=== PATIENT | female | born 1985 | race Caucasian/White ===

== ENCOUNTER 2020-08-17 15:11 | Outpatient (CLI) | payer OTHER, SELFPAY ==
--- NOTE | 2020-08-17 15:25 | CT_ITS ---
WS: [id number] CT scan of the temporal bones. Additional two-dimensional coronal and sagittal reconstruction was per formed. 08/17/2020 Clinical Data: SENSORINEURAL HEARING LOSS OF BOTH EARS, HX PERFORATION TYMP Comparison: None. DLP: 747.[address] scans at [facility] use at least one of these dose optimization techniques: automat ed exposure control; mA and/or kV adjustment per patient size (includes targeted exams where dose is matched to clinical indication); or iterative reconstruction. Findings: The external auditory canals are normal. The malleolus, incus and stapes appear to be normal. The se micircular canals show no erosions. The internal auditory canals are normal. The attic shows no erosi on or evidence of a cholesteatoma. The adjacent mastoid air cells appear to be normal. The carotid ca nals are not eroded. CT/CT temporal bone wo con* [id number] Impression: Negative CT scan of the temporal bones.
== END 2020-08-17 15:12 | disposition home or self-care (01) ==
LOC: RADWPI 15:17
PROVIDERS: PCP Family Medicine; Visit Provider Otolaryngology Otology & Neurotology
DX: Z86.69 Personal history of other diseases of the nervous system and sense organs; H90.A32 Mixed conductive and sensorineural hearing loss, unilateral, left ear with restricted hearing on the contralateral side; H90.6 Mixed conductive and sensorineural hearing loss, bilateral
CPT/HCPCS: 70480

== ENCOUNTER 2021-12-21 07:59 | Emergency (ER) | payer OTHER, SELFPAY ==
--- NOTE | 2021-12-21 08:03 | ECG_ITS ---
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 Measurements Intervals [place] Rate: 99 P: 31 WV: 132 QRS: 23 QRSD: 96 T: 0 QT: 315 QTc: 406 Interpretive Statements SINUS RHYTHM NONSPECIFIC T-WAVE ABNORMALITY No previous ECG available for comparison Electronically Signed On 12-21-2021 23:22:23 CDT by Shanelle Madrid M.D. [id number]
--- NOTE | 2021-12-21 08:03 | XR_ITS ---
WS: [id number] Exam: XR chest 1V portable [id number] Date/Time of Exam: 12/21/2021 8:04 AM Reason For Exam: chest pain Findings: The lungs are clear and fully expanded. Costophrenic angles are sharp. No infiltrates. Bronchovascula r relief appears normal. Cardiac silhouette is unremarkable. Bony elements are intact. XR/XR chest 1V portable [id number] IMPRESSION: Unremarkable chest radiograph.
--- NOTE | 2021-12-21 08:26 | ED_ITS ---
Documented by User: BETINA Spangler 12/21/21 10:55 HPI - Chest Pain General: Chief Complaint: Chest Pain Stated Complaint: chest pain/light headed/jaw & back pain Time Seen by Provider: 12/21/21 08:01 Source: patient and family Mode of arrival: ambulatory Limitations: no limitations History of Present Illness: Patient is a nice 36-year-old female who presents to ED today along with her mother and for concerns of an episode of chest pain that occurred this morning when she woke up. Patient states she did not sleep very well last night secondary to bloating/cramping sensations to her upper abdomen and states she was burping a lot. She states this morning she began feeling like she had acid reflux but states the pain worsened and moved up into her chest and radiated into her back and up into her jaw which made her concerned. Patient states her pain was uncharacteristic for her and her previous acid reflux symptoms. Patient tells me she had a Holter monitor a few weeks ago due to palpitations and abnormal heart rhythms-they are unaware of these results. Patient states she currently is not having palpitations or feeling like her heart is racing. She currently does not have chest pain but does feel like her jaws hurting. Patient denies shortness of breath or difficulty breathing. No cough/URI symptoms. No fevers. Family wonders if this could be her gallbladder as she was told she had sludge previously. Patient does feel nauseous. She has not had any episodes of emesis. Bowel movements have been normal. She states she has otherwise healthy and takes no medications. She does states she had an elevated cholesterol reading from an isolated screening test but states she believes that she has had this checked through PCP and they keep telling her everything is normal but does not know specific results. She states she does have family history of heart disease with individuals being diagnosed in their 50s/60s. MD complaint: chest pain Onset (ago): hour(s) Prior episodes: Yes Onset: during rest and awoke with symptoms Pain location: substernal and epigastric Pain radiation: jaw/teeth Relieving factors: nothing Exacerbating factors: nothing Associated symptoms: Reports abdominal pain, nausea and palpitations (has had previously-none currently); Deny dyspnea, fever(s), syncope or vomiting Treatment prior to arrival: none Risk Factors: Coronary artery disease risk factors: hyperlipidemia (questionable-states she had elevated reading previously but PCP stating normal labs ) Thoracic aortic dissection risk factors: none Related Data: On Oral Contraceptives: No Review of Systems Const: Reports: fatigue; Denies: fever(s), chills or body aches Eyes: Denies: change in vision or blurry vision Card: Reports: chest pain, palpitations (has had previously-none currently) an d lightheadedness; Denies: edema, swelling of feet/ankles, syncope, pre-syncope, dyspnea on exertio n, orthopnea, leg pain with exertion or acrocyanosis Resp: Denies: dyspnea, wheezing, pain on inspiration, hemoptysis or chest congestion GI: Reports: abdominal pain, nausea, heartburn and GI cramping; Denies: vomiting or diarrhea Musc: Reports: back pain (low back pain this AM-none currently); Denies: neck pain, extremity pain or joint pain Skin/Breast: Denies: rash Neuro: Denies: headache(s), numbness in extremities, weakness in extremities o r sensory changes Physical Exam Const: COMMON NORMALS: no acute distress, patient oriented x3, no limitations and alert GENERAL APPEARANCE: cooperative ORIENTATION/CONSCIOUSNESS: Yes awake, Yes oriented to person, Yes oriented to place and Yes oriented to time HENMT: COMMON NORMALS: normocephalic and atraumatic HEAD & SCALP: normal to inspection, normocephalic and atraumatic Resp: COMMON NORMALS: normal respiratory effort and clear to auscultation bilaterally AUSCULTATION: clear to auscultation bilaterally Cardio: COMMON NORMALS: regular rate and regular rhythm RATE: regular rate RHYTHM: regular rhythm GI: COMMON NORMALS: Normal to inspection, nondistended, normoactive bowel sounds present, Soft to palpation, No hepatosplenomegaly present and no masses INSPECTION: Yes normal to inspection PALPATION: Yes Soft to palpation, Yes Tenderness to palpation present (GI) (mild upper abdomen ), No Guarding due to palpation present (GI), No Rigid due to palpation and Yes No hepatosplenomegaly present Extremity: COMMON NORMALS: no calf tenderness and no pedal edema Neuro: ZAIDA COMA SCALE: document GCS findings [place] coma scale eye opening: Spontaneous Zaida coma scale verbal response: Orientated Zaida coma scale motor response: Obey commands [place] coma scale total score: 15 COMMON NORMALS: patient oriented x3 SENSORIUM/ORIENTATION: Yes alert, Yes oriented to person, Yes oriented to place and Yes oriented to time Skin: COMMON NORMALS: no rashes or lesions noted GENERAL SKIN EXAM: no rashes or lesions noted Course Vital Signs: Vital signs: Vital Signs Pulse Rate 87 12/21/21 11:18 Respiratory Rate 17 12/21/21 11:18 Blood Pressure 101/78 12/21/21 11:18 Pulse Oximetry 100 12/21/21 11:18 MDM - Chest Pain Medical Decision Making Patient is a 36-year-old female here for complaints of chest pain with radiation into her jaw starting around 7 AM this morning. She states she did have a lot of abdominal cramping/bloating/burping throughout the night. She does have a history of acid reflux/indigestion but states her pain into her chest and jaw were uncharacteristic. Patient's initial EKG and baseline EKG are normal. Her baseline troponin is 6. Remainder of blood work is fairly unremarkable apart from a very mild hypocalcemia at 8.0. US of her gallbladder obtained and was normal. CXR normal. At this point I have a very low suspicion for cardiac etiology. Results of patient's recent Holter monitor were reviewed. We discussed trial of OTC H2/PPI medications to possibly help with acid reflux/GERD. Recomm end follow up with her PCP in 1-2 weeks for re-evaluation. Return to ED precautions given. Lab Data : 12/21/21 09:41 12/21/21 09:41 Radiology Impressions Chest X-Ray 12/21/21 08:03 IMPRESSION: Unremarkable chest radiograph. Gallbladder Ultrasound 12/21/21 08:52 IMPRESSION: 1. Quality limited by body habitus. 2. No cholelithiasis or bile duct dilatation. Laboratory Results WBC 5.8 10^3/uL (4.0-10.0) 12/21/21 09:41 RBC 4.99 10^6/uL (4.1-5.3) 12/21/21 09:41 Hgb 14.2 g/dL (11.5-15.3) 12/21/21 09:41 Hct 43.9 % (37.0-47.0) 12/21/21 09:41 MCV 88.0 fl (81-99) 12/21/21 09:41 MCH 28.5 pg (28.0-34.0) 12/21/21 09:41 MCHC 32.3 g/dL (30.0-36.0) 12/21/21 09:41 RDW 12.0 % (12.1-15.1) L 12/21/21 09:41 Plt Count 152 10^3/cmm (130-400) 12/21/21 09:41 MPV 12.1 fL (7.4-10.4) H 12/21/21 09:41 Neut % (Auto) 83.3 % 12/21/21 09:41 Lymph % (Auto) 9.3 % 12/21/21 09:41 [place] % (Auto) 5.7 % 12/21/21 09:41 Eos % (Auto) 0.9 % 12/21/21 09:41 Baso % (Auto) 0.5 % 12/21/21 09:41 Neut # (Auto) 4.83 10^3/uL (1.8-7.7) 12/21/21 09:41 Lymph # (Auto) 0.5 10^3/uL (0.8-4.8) L 12/21/21 09:41 [place] # (Auto) 0.3 10^3/uL (0.2-0.9) 12/21/21 09:41 Eos # (Auto) 0.1 10^3/uL (0.0-0.8) 12/21/21 09:41 Baso # (Auto) 0.0 10^3/uL (0.0-0.1) 12/21/21 09:41 Nucleated RBC % (auto) 0 % 12/21/21 09:41 Nucleated RBCs # 0.0 /100WBC 12/21/21 09:41 Sodium 135 mmol/L (136-145) L 12/21/21 09:41 Potassium 4.1 mmol/L (3.5-5.1) 12/21/21 09:41 Chloride 102 mmol/L (98-107) 12/21/21 09:41 Carbon Dioxide 24 mmol/L (22-29) 12/21/21 09:41 Anion Gap 13.1 (5-19) 12/21/21 09:41 BUN 17 mg/dL (6-20) 12/21/21 09:41 Creatinine 0.8 mg/dL (0.5-0.9) 12/21/21 09:41 GFR Calculation 82.1 mL/min (90-130) L 12/21/21 09:41 Glucose 83 mg/dL (65-115) 12/21/21 09:41 Calculated Osmolality 281 mOsm/kg (285-295) L 12/21/21 09:41 Calcium 8.0 mg/dL (8.5-10.5) L 12/21/21 09:41 Total Bilirubin 0.6 mg/dL (0.15-1.2) 12/21/21 09:41 AST 21 U/L (0-32) 12/21/21 09:41 ALT 24 U/L (0-33) 12/21/21 09:41 Alkaline Phosphatase 50 IU/L (35-105) 12/21/21 09:41 Troponin T Baseline 6 ng/L (0-10) 12/21/21 09:41 Total Protein 6.3 g/dL (6.6-8.7) L 12/21/21 09:41 Albumin 4.0 g/dL (3.5-5.2) 12/21/21 09:41 Globulin 2.3 g/dL (1.3-4.6) 12/21/21 09:41 HCG, Qual Negative (Negative) 12/21/21 09:41 Discharge Plan Discharge Patient Disposition: Home Clinical Impression: Non-cardiac chest pain Condition: Stable Discharge Orders: Discharge ED (Routine); Ordered 12/21/21 Ordered By: Becca Astudillo Referrals: Pito Santos DO [Primary Care Provider] - Coding Level of Care Code ED Associate Director Data & Analytics for Chg Fwd Exam Comprehensive Documented by User: Olegario Kenyon DO 12/21/21 16:19 HPI - Chest Pain General: Chief Complaint: Chest Pain Stated Complaint: chest pain/light headed/jaw & back pain Time Seen by Provider: 12/21/21 08:01 Physical Exam Neuro: ZAIDA COMA SCALE: document GCS findings [place] coma scale total score: 15 Course Vital Signs: Vital signs: Vital Signs Pulse Rate 87 12/21/21 11:18 Respiratory Rate 17 12/21/21 11:18 Blood Pressure 101/78 12/21/21 11:18 Pulse Oximetry 100 12/21/21 11:18 MDM - Chest Pain Medical Decision Making Patient is a 36-year-old female here for complaints of chest pain with radiation into her jaw starting around 7 AM this morning. She states she did have a lot of abdominal cramping/bloating/burping throughout the night. She does have a history of acid reflux/indigestion but states her pain into her chest and jaw were uncharacteristic. Patient's initial EKG and baseline EKG are normal. Her baseline troponin is 6. Remainder of blood work is fairly unremarkable apart from a very mild hypocalcemia at 8.0. US of her gallbladder obtained and was normal. CXR normal. At this point I have a very low suspicion for cardiac etiology. Results of patient's recent Holter monitor were reviewed. We discussed trial of OTC H2/PPI medications to possibly help with acid reflux/GERD. Recommend follow up with her PCP in 1-2 weeks for re-evaluation. Return to ED precautions given. Chart reviewed and patient discussed with midlevel. Agree with assessment and plan. Lab Data : 12/21/21 09:41 12/21/21 09:41 Radiology Impressions Chest X-Ray 12/21/21 08:03 IMPRESSION: Unremarkable chest radiograph. Gallbladder Ultrasound 12/21/21 08:52
[2021-12-21 08:34] VITALS: BP 114/75; PULSE 91; RESP 14; O2SAT 96
[2021-12-21] MEDS: lidocaine 2% viscous 15 ML, aluminum-mag hydrox-simethicon 30 ML, sucralfate oral liq 1 GM PO (08:35)
--- NOTE | 2021-12-21 08:52 | US_ITS ---
WS: [id number] RIGHT UPPER QUADRANT ULTRASOUND HISTORY: upper ab pain, nausea COMPARISON: 05/25/2010. Quality of this examination is limited by body habitus. Liver: 15.3 cm in length. Normal size liver. No bile duct dilatation or mass. Portal Vein: Normal hepatopetal flow with monophasic waveform. Gallbladder: Normally distended gallbladder with no stones or wall thickening. There is a very tiny g allbladder wall. Thickening which is probably a polyp. No increased vascularity. CBD: 0.3 cm Pancreas: Obscured by bowel gas. Right kidney: 9.9 cm in length. Normal size and echogenicity. No hydronephrosis or mass. Aorta and IVC: Unremarkable abdominal aorta and IVC. No ascites. US/US gall bladder [id number] IMPRESSION: 1. Quality limited by body habitus. 2. No cholelithiasis or bile duct dilatation.
--- NOTE | 2021-12-21 09:00 | PC.NURSE ---
Patient reports no change in pain with GI cocktail. patient states that the pain is in her upper abdominal area and wraps around the back.
[2021-12-21 09:08] VITALS: BP 119/85; PULSE 90; RESP 18; O2SAT 100
--- NOTE | 2021-12-21 09:10 | PC.NURSE ---
Patient states GI cocktail did not help. Patient would like to hold off on blood work until after ultrasound. Notified provider, she states straight stick for blood draw is okay.
[2021-12-21 09:36] VITALS: BP 120/67; PULSE 91; RESP 17; O2SAT 100
[2021-12-21 09:50] LABS: Basophils % 0.5 %; Eosinophils # 0.1 10^3/uL (0.0-0.8); Eosinophils % 0.9 %; Hematocrit 43.9 % (37.0-47.0); Hemoglobin 14.2 g/dL (11.5-15.3); Lymphocytes # 0.5 10^3/uL (0.8-4.8); Lymphocytes % 9.3 %; Mean Corpuscular HGB Conc 32.3 g/dL (30.0-36.0); Mean Corpuscular Hemoglobin 28.5 pg (28.0-34.0); Mean Platelet Volume 12.1 fL (7.4-10.4); Monocytes # 0.3 10^3/uL (0.2-0.9); Monocytes % 5.7 %; Neutrophils # 4.83 10^3/uL (1.8-7.7); Neutrophils % 83.3 %; Nucleated Red Blood Cells % 0 %; Platelet Count 152 10^3/cmm (130-400); Red Blood Count 4.99 10^6/uL (4.1-5.3); White Blood Count 5.8 10^3/uL (4.0-10.0)
--- NOTE | 2021-12-21 10:00 | PC.NURSE ---
Provider okay with no IV placement at this time.
--- NOTE | 2021-12-21 10:03 | ECG_ITS ---
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 Measurements Intervals [place] Rate: 89 P: 23 MA: 136 QRS: 22 QRSD: 94 T: 18 QT: 324 QTc: 394 Interpretive Statements SINUS RHYTHM Compared to ECG 12/21/2021 08:06:47 T-wave abnormality no longer present Electronically Signed On 12-21-2021 23:32:32 CDT by Shanelle Madrid M.D. [id number]
[2021-12-21 10:12] LABS: Alanine Aminotransferase 24 U/L (0-33); Alkaline Phosphatase 50 IU/L (35-105); Anion Gap 13.1 (5-19); Aspartate Amino Transferase 21 U/L (0-32); Blood Urea Nitrogen 17 mg/dL (6-20); Carbon Dioxide 24 mmol/L (22-29); Chloride 102 mmol/L (98-107); Globulin 2.3 g/dL (1.3-4.6); Glomerular Filtration Rate 82.1 mL/min (90-130); Glucose 83 mg/dL (65-115); Osmolality Calculated 281 mOsm/kg (285-295); Potassium 4.1 mmol/L (3.5-5.1); Sodium 135 mmol/L (136-145); Total Bilirubin 0.6 mg/dL (0.15-1.2); Total Protein 6.3 g/dL (6.6-8.7)
--- NOTE | 2021-12-21 10:12 | PC.NURSE ---
Patient in bed, no distress noted, vitals stable. Patient denies any needs at this time.
[2021-12-21 10:13] LABS: Troponin(5th) Baseline 6 ng/L (0-10)
[2021-12-21 10:31] VITALS: PULSE 90; RESP 16; O2SAT 99
[2021-12-21 10:33] LABS: HCG, Serum Qual Negative (Negative)
[2021-12-21 11:18] VITALS: BP 101/78; PULSE 87; RESP 17; O2SAT 100
== END 2021-12-21 11:21 | disposition home or self-care (01) ==
PROVIDERS: Emergency Provider Physician Assistant; PCP Family Medicine
DX: R07.89 Other chest pain (principal)
CPT/HCPCS: 36415; 71045; 76705; 80053; 84484; 84703; 85025; 93005; 99283

== ENCOUNTER → 2023-03-16 14:25 | Outpatient (BNVA) | payer OTHER, SELFPAY | PROVIDERS: PCP Family Medicine; Visit Provider Nurse Practitioner Family | DX: R39.9 Unspecified symptoms and signs involving the genitourinary system (principal); N30.90 Cystitis, unspecified without hematuria | CPT/HCPCS: 81000 ==

== ENCOUNTER → 2023-05-26 10:06 | Outpatient (BNVA) | payer OTHER, SELFPAY | PROVIDERS: PCP Family Medicine; Visit Provider Family Medicine | DX: R63.5 Abnormal weight gain (principal); Z00.00 Encounter for general adult medical examination without abnormal findings; Z76.89 Persons encountering health services in other specified circumstances | CPT/HCPCS: 80053; 80061; 84439; 84443; 84481; 85025 ==

== ENCOUNTER → 2024-09-04 10:31 | Outpatient (BNVA) | payer OTHER, SELFPAY | PROVIDERS: PCP Family Medicine; Visit Provider Emergency Medicine | DX: J02.9 Acute pharyngitis, unspecified (principal) | CPT/HCPCS: 87071; 87880 ==

== ENCOUNTER → 2024-10-05 08:58 | Outpatient (BNVA) | payer OTHER, SELFPAY | PROVIDERS: PCP Family Medicine; Visit Provider Family Medicine | DX: J11.1 Influenza due to unidentified influenza virus with other respiratory manifestations (principal) | CPT/HCPCS: 87400 ==